=== PATIENT | male | born 1960 | race Caucasian/White ===

== ENCOUNTER → 2019-07-17 | Outpatient (CLI) | payer OTHER ==
[~2019-07-17] MED LIST: FLEXERIL PO; IBUPROFEN 800800 M1 PO; PRINIVIL20 MG PO; ZOCOR20 MG PO
--- NOTE | 2019-07-21 07:05 | SLEEP ---
[address] [address] SLEEP STUDY REPORT Name: FELIPE REYNOLDS Room: [facility]#: [id number] Admission: 07/17/19 Attend Phys: Myles Soliz DO Discharge: Date of : 60 Report #: [id number] THIS REPORT FOR: //name// CC: Myles Soliz DO This study has been reviewed in its entirety by a board certified sleep specialist DATE OF SERVICE: 07/17/2019 ATTENDING PHYSICIAN: Myles Soliz DO. The patient is 59 years old who weighs 320 pounds with a BMI of 41.1. The patient underwent split night study performed at [facility]. During the night study, the patient spent 423 minutes in bed and slept for 234 minutes with a low sleep efficiency of 55%. Sleep latency was 22 minutes with a REM latency of 215 minutes. Overall, sleep architecture showed increased stage 1 sleep, normal stage 2 sleep, increased slow wave and normal REM sleep. During the initial diagnostic portion of the study, the patient slept for 56 minutes. During that time, there were 41 obstructive apneas, no mixed or central apneas and 49 hypopneas. The patient's apnea-hypopnea index was 95.6 per hour. REM sleep was not seen during the diagnostic portion of the study. Supine AHI was 80 per hour. EKG monitoring revealed an average heart rate of 77 beats per minute, no sustained arrhythmias observed. PLMS were seen at an index of 75 per hour and 20 per hour caused EEG arousals. Nocturnal oximetry study revealed an average oxygen saturation of 92% with a lowest of 78%. 23 minutes were spent in oxygen saturation of less than 89%. The patient met the criteria for CPAP initiation. It was started at 5 cm water and titrated up to 14 cm water. At the final pressure, the patient slept for 45 minutes. The patient had supine sleep throughout. No REM sleep was observed. The patient's AHI was reduced to 2.7 per hour and oxygen saturation remained above 92%. During the CPAP titration part, the patient's PLM index did improve from 75 per hour to 22 per hour with an arousal index of only 1 per hour. IMPRESSION: 1. Severe sleep apnea-hypopnea syndrome at an AHI of 95 per hour. 2. Nocturnal hypoxia secondary to obstructive sleep apnea, but [place] [id number] SLEEP STUDY REPORT Name: FELIPE REYNOLDS Room: [facility]#: [id number] Admission: 07/17/19 Attend Phys: Myles Soliz DO Discharge: Date of : 60 Report #: [id number] 3. Severe periodic limb movements at an index of 75 per hour, but improved to only 22 per hour with an arousal index of 1.4 per hour while the patient slept on CPAP. RECOMMENDATIONS: 1. CPAP at 14 cm water completely eliminated the patient's sleep apnea and should be used on a nightly basis. 2. Follow up in 4-6 weeks to assess compliance and to document clinical improvement. 3. Weight loss is strongly advised. 4. Avoid [employer] depressants. 5. Cautioned regarding driving or operating heavy machinery until symptoms of sleep apnea resolve with the use of CPAP. 6. PLMS does not need to be treated unless the patient has symptoms of restless legs during the day. <ELECTRONICALLY SIGNED> By: Meño Berrios MD 07/21/19 0705 [id number] Berrios MD /yogi
== END ==
LOC: M.SLEEPLAB 20:34
DX: G47.33 Obstructive sleep apnea (adult) (pediatric) (principal); G47.34 Idiopathic sleep related nonobstructive alveolar hypoventilation